=== PATIENT | female | born 1965 ===

== ENCOUNTER 2017-06-21 04:24 | Emergency (ER) | payer MEDICAID ==
[2017-06-21 04:25] VITALS: BMI 31.4
[2017-06-21 04:35] VITALS: BP 124/52; PULSE 106; RESP 20; TEMP 99.8; O2SAT 98
--- NOTE | 2017-06-21 05:29 | ED PDOC ---
HPI: General Adult Time Seen by Provider: 06/21/17 04:34 Chief Complaint (Nursing): ENT Problem Chief Complaint (Provider): ENT Problem History Per: Patient History/Exam Limitations: no limitations Onset/Duration Of Symptoms: Hrs (since waking up earlier today) Have you had recent travel within the past 21 days to any of the following countries: [place], [place], [place] or [place]?: No Current Symptoms Are (Timing): Gone Now Recently: Treated By A Physician Additional Complaint(s): 52 year old female presents to ED with complaints of epistaxis since waking earlier today and recently underwent sinus surgery x2 days ago for post nasal drip. Patient notes that epistaxis resolved CLEAN[facility]ORTER to ED and she has no other complaints. Denies any other past medical history. PCP: Bryce Muñoz Past Medical History Reviewed: Historical Data, Nursing Documentation, Vital Signs Vital Signs: Last Vital Signs Temp 99.8 F H 06/21/17 04:30 Pulse 106 H 06/21/17 04:30 Resp 20 06/21/17 04:30 BP 124/52 L 06/21/17 04:30 Pulse Ox 98 06/21/17 05:33 - Medical History PMH: No Chronic Diseases Denies: Chronic Kidney Disease - Surgical History Surgical History: Other surgeries: sinus surgery, hysterectomy - Family History Family History: States: No Known Family Hx - Home Medications Home Medications: Ambulatory Orders Medication Instructions Recorded Albuterol HFA [Ventolin HFA 90 1 puff INH PRN PRN 12/23/15 mcg/actuation (8 g)] Oxymetazoline 0.05% [Oxymetazoline 2 spray NS Q6 #1 bottle 06/21/17 HCl 30 Ml] Ofloxacin Ophth 0.3% [Ocuflox 2 drop OU QID #1 bottle 06/22/17 Ophth 0.3%] - Allergies Allergies/Adverse Reactions: Allergies Allergy/AdvReac Type Severity Reaction Status Date / Time No Known Allergies Allergy Verified 06/22/17 17:14 Review of Systems ROS Statement: Except As Marked, All Systems Reviewed And Found Negative ENT: Positive for: Other (resolved epistaxis) Physical Exam - Reviewed Nursing Documentation Reviewed: Yes Vital Signs Reviewed: Yes - Physical Exam Appears: Positive for: Non-toxic, No Acute Distress. Negative for: Uncomfortable Skin: Positive for: Normal Color, Warm, Dry Eye Exam: Positive for: Normal appearance ENT: Positive for: Sinus Pain/Drainage (Dried blood in right nare. No active bleeding. ). Negative for: Other ((-) blood in pharynx) Respiratory: Negative for: Respiratory Distress Neurologic/Psych: Positive for: Alert, Oriented. Negative for: Motor/Sensory Deficits - ECG O2 Sat by Pulse Oximetry: 98 (RA) Pulse Ox Interpretation: Normal Medical Decision Making Medical Decision Makin Initial impression: epistaxis Initial plan: * Monitor condition Scribe Attestation: Documented by Antonina Prado acting as a scribe for Anh Daniels MD. Scribe Attestation: All medical record entries made by the Scribe were at my direction and personally dictated by me. I have reviewed the chart and agree that the record accurately reflects my personal performance of the history, physical exam, medical decision making, and the department course for this patient. I have also personally directed, reviewed, and agree with the discharge instructions and disposition. Disposition - Clinical Impression Clinical Impression: Epistaxis - Patient ED Disposition Is Patient to be Admitted: No Doctor Will See Patient In The: Office Counseled Patient/Family Regarding: Studies Performed, Diagnosis, Need For Followup - Disposition Referrals: Bryce Muñoz MD [Primary Care Provider] - Disposition: Routine/Home Disposition Time: 06:00 Condition: GOOD Additional Instructions: Follow up with your PCP and nose doctor within 2-3 days. Prescriptions: Oxymetazoline 0.05% [Oxymetazoline HCl 30 Ml] 2 spray NS Q6 #1 bottle Instructions: Nosebleed (ED)
[2017-06-21] MEDS ORDERED: Phenylephrine 0.5% Nasal Spray NAS STA (05:42)
== END 2017-06-21 07:00 | disposition home or self-care (01) ==
LOC: H.ER 04:24
DX: R04.0 Epistaxis (principal); Z90.710 Acquired absence of both cervix and uterus; Z98.890 Other specified postprocedural states

== ENCOUNTER 2017-06-22 17:12 | Emergency (ER) | payer MEDICAID ==
[2017-06-22 17:12] VITALS: BMI 31.4
[2017-06-22 17:19] VITALS: BP 146/73; PULSE 103; RESP 16; TEMP 99.2; O2SAT 100
--- NOTE | 2017-06-22 17:41 | ED PDOC ---
HPI:STROKE - Time Time: 17:38 - Historian Historian: Patient - Chief Complaint Chief Complaint: Numbness - Onset Date: 06/22/17 Time: 10:00 Onset: Hours (7) - Location Locate right:: Face Locate left: Lower extremity (Pins and needles face bilat) - Radiation Radiation: None - Severity of pain Maximum severity:: Mild Pain Scale:: 0 Severity Current: None Pain Scale:: 0 - TPA Positive for Contraindication: Yes Reason tPA is not being Administered: Sxs greater than 7 hours - Notes: Notes:: Numbness left ant thigh 10AM today assoc with pins and needles face bilat.. S/p nasal endoscopy for ? CSF leak, none found according to patient. Denies headache. Also c/o redness and burning sensation to right eye. NIHSS Stroke Scale - How Severe is the Stroke Level of Consciousness: 0=Alert LOC to Questions: 0=Both comments correct LOC to commands: 0=Obeys both correctly Best Gaze: 0=Normal Visual: 0=No visual loss Facial: 0=Normal Motor Arm - Left: 0=No drift Motor Arm - Right: 0=No drift Motor Leg - Left: 0=No drift Motor Leg - Right: 0=No drift Limb Ataxia: 0=Absent Sensory: 0=Normal Best Language: 0=No aphasia Dysarthia: 0=Normal articulation Extinction & Inattention (Neglect): 0=Normal, no object Score: 0 rTPA Inclusion/Exclusion - Refusal of Treatment Patient Refused Treatment: No - Inclusion Criteria for Altepase Patient is 18 years or Older: Yes The Clinical Diagnosis of Ischemic Stroke That is Causing a Potentially Disabling Neurological Deficit: No Time of Onset is Well Established to be Less Than 270 Minute Before Treatment Would Begin: No Risk/Benefit Discussed With Patient/Family Member Present: No Past Medical History Vital Signs: Last Vital Signs Temp 99.2 F 06/22/17 17:14 Pulse 103 H 06/22/17 17:14 Resp 16 06/22/17 17:14 BP 146/73 06/22/17 17:14 Pulse Ox 100 06/22/17 17:14 - Medical History PMH: Asthma Denies: Chronic Kidney Disease - Surgical History Surgical History: - Family History Family History: States: Unknown Family Hx - Home Medications Home Medications: Ambulatory Orders Medication Instructions Recorded Albuterol HFA [Ventolin HFA 90 1 puff INH PRN PRN 12/23/15 mcg/actuation (8 g)] Oxymetazoline 0.05% [Oxymetazoline 2 spray NS Q6 #1 bottle 06/21/17 HCl 30 Ml] - Allergies Allergies/Adverse Reactions: Allergies Allergy/AdvReac Type Severity Reaction Status Date / Time No Known Allergies Allergy Verified 06/22/17 17:14 Review of Systems ROS Statement: Except As Marked, All Systems Reviewed And Found Negative Neurological: Positive for: Numbness Physical Exam - Reviewed Nursing Documentation Reviewed: Yes Vital Signs Reviewed: Yes - Physical Exam Appears: Positive for: Non-toxic, No Acute Distress Head Exam: Positive for: ATRAUMATIC, NORMAL INSPECTION, NORMOCEPHALIC Skin: Positive for: Normal Color, Warm, DRY Eye Exam: Positive for: EOMI, PERRL. Negative for: Normal appearance (Right eye conjunctivae and sclera injected medial portion) ENT: Positive for: Normal ENT Inspection Neck: Positive for: Normal, Painless ROM Cardiovascular/Chest: Positive for: Regular Rate, Rhythm Respiratory: Positive for: CNT, Normal Breath Sounds Gastrointestinal/Abdominal: Positive for: Normal Exam, Bowel Sounds, Soft Back: Positive for: Normal Inspection Extremity: Positive for: Normal ROM Neurologic/Psych: Positive for: Alert, Oriented. Negative for: Motor/Sensory Deficits - Laboratory Results Result Diagrams: 06/22/17 17:44 06/22/17 17:44 - ECG O2 Sat by Pulse Oximetry: 100 Disposition - Clinical Impression Clinical Impression: Facial paresthesia - Patient ED Disposition Is Patient to be Admitted: Yes - Disposition Disposition Time: 18:42 Condition: FAIR Forms: [facility] (Sing[place]an) - Pt Status Changed To: Hospital Disposition Of: Observation - POA Present On Arrival: None
[2017-06-22 18:04] LABS: BASO % 0.2 % (0.0-2.0); HEMATOCRIT 37.4 % (34.0-47.0); LYMPH # 0.5 K/uL (1.0-4.3); LYMPH % 5.1 % (20.0-40.0); MEAN CELL VOLUME 94.2 fl (81.0-99.0); MEAN CORPUSCULAR HEMOGLOBIN 31.2 pg (27.0-31.0); MEAN CORPUSCULAR HGB CONC 33.1 g/dL (33.0-37.0); MEAN PLATELET VOLUME 7.7 fl (7.2-11.7); MONO # 0.3 K/uL (0.0-0.8); NEUT # 8.1 K/uL (1.8-7.0); NEUT % 91.7 % (50.0-75.0); PLATELET COUNT 245 K/uL (130-400); RED CELL DISTRIBUTION WIDTH 13.9 % (11.5-14.5); WHITE BLOOD COUNT 8.9 K/uL (4.8-10.8)
[2017-06-22 18:20] LABS: ALB/GLOB RATIO 1.1 (1.0-2.1); ALKALINE PHOSPHATASE 74 U/L (38-126); ALT/SGPT 43 U/L (9-52); AST/SGOT 38 U/L (14-36); BILIRUBIN,TOTAL 0.3 mg/dl (0.2-1.3); BLOOD UREA NITROGEN 14 mg/dl (7-17); CALCIUM 9.4 mg/dL (8.4-10.2); CARBON DIOXIDE 25 mmol/L (22-30); CHLORIDE 106 mmol/L (98-107); GFR AFRICAN-AMERICAN > 60; GLUCOSE,RANDOM 198 mg/dL (65-105); POTASSIUM 4.2 MMOL/L (3.6-5.0); SODIUM 143 mmol/l (132-148); TOTAL PROTEIN 7.8 G/DL (6.3-8.2)
[2017-06-22] MEDS ORDERED: Gadodiamide 287 MG/ML VIAL (15ML) IV ONE (18:56)
[2017-06-22 20:20] LABS: NEUTROPHIL 83 % (42-75); TOTAL CELLS COUNTED 100
--- NOTE | 2017-06-22 20:42 | MRI ---
EXAM: MR Head Without and With Intravenous Contrast EXAM DATE/TIME: 06/22/2017 6:39 PM CLINICAL HISTORY: 52 years old, female; Signs and symptoms; Other: Left leg numbness; Additional info: Csf leak? TECHNIQUE: Magnetic resonance images of the head/brain without and with intravenous contrast in multiple planes. CONTRAST: 15 mL of OMNISCAN administered intravenously. COMPARISON: Recent head CT of 2017-06-22 18:03 FINDINGS: BRAIN: Best seen on FLAIR images 10 and 14, there are 2 tiny foci of signal abnormality in the right right frontal white matter, one in the deep white matter, and the second in the subcortical white matter. No associated enhancement. These are nonspecific in appearance, however, in a patient of this age, most likely representing mild chronic small vessel ischemic changes. No other significant abnormality identified. No evidence of restricted diffusion/acute infarct. No acute extra-axial fluid collections visualized. No evidence of abnormal intracranial enhancement. VENTRICLES: No evidence of significant hydrocephalus. BONES/JOINTS: No acute bony abnormality identified. SINUSES: Fluid and heterogeneous material seen in the right sphenoid sinus, which appears partially composed of fat density on the recent CT, and could represent some type of surgical material or packing material. Recommend correlation with surgical history. There is also scattered opacification of the bilateral ethmoid sinuses. MASTOID AIR CELLS: Mastoid air cells appear clear. ORBITS: No acute intraorbital abnormality seen. SELLA: Pituitary gland appears grossly unremarkable. IMPRESSION: - No evidence of acute infarct or other significant acute intracranial abnormality. - Heterogeneous material in the right sphenoid sinus. Please see above for a full description. - Few tiny foci of white matter signal abnormality, nonspecific in appearance, but most likely representing mild chronic small vessel ischemic changes. - See above for remaining findings.
--- NOTE | 2017-06-22 21:03 | ED PDOC ---
- Laboratory Results Result Diagrams: 06/22/17 17:44 06/22/17 17:44 - ECG O2 Sat by Pulse Oximetry: 100 (RA) Pulse Ox Interpretation: Normal Medical Decision Making Medical Decision Makin:00 Patient signed over to me from Dr. Gutierrez. MRI pending. 20:42 Head MRI reviewed. Findings noted as follows: FINDINGS: BRAIN: Best seen on FLAIR images 10 and 14, there are 2 tiny foci of signal abnormality in the right right frontal white matter, one in the deep white matter, and the second in the subcortical white matter. No associated enhancement. These are nonspecific in appearance, however, in a patient of this age, most likely representing mild chronic small vessel ischemic changes. No other significant abnormality identified. No evidence of restricted diffusion/acute infarct. No acute extra-axial fluid collections visualized. No evidence of abnormal intracranial enhancement. VENTRICLES: No evidence of significant hydrocephalus. BONES/JOINTS: No acute bony abnormality identified. SINUSES: Fluid and heterogeneous material seen in the right sphenoid sinus, which appears partially composed of fat density on the recent CT, and could represent some type of surgical material or packing material. Recommend correlation with surgical history. There is also scattered opacification of the bilateral ethmoid sinuses. MASTOID AIR CELLS: Mastoid air cells appear clear. ORBITS: No acute intraorbital abnormality seen. SELLA: Pituitary gland appears grossly unremarkable. IMPRESSION: - No evidence of acute infarct or other significant acute intracranial abnormality. - Heterogeneous material in the right sphenoid sinus. Please see above for a full description. - Few tiny foci of white matter signal abnormality, nonspecific in appearance, but most likely representing mild chronic small vessel ischemic changes. - See above for remaining findings. 21:00 Spoke to patient and explained the benign nature of her MRI. Patient states that she prefers to follow up as an outpatient. 21:04 Cancelled patient's admission. Spoke to Dr. Levy. 21:06 Patient is stable for discharge. Patient agrees to follow up with Dr. Londono ( Neurology). In addition she agrees to follow up with her own flooring helper, ENT doctor, and neurosurgeon. Clinical impression: paresthesia Scribe Attestation: Documented by Lyndsey Hernandez, acting as a scribe for Fabrice Granger MD. Provider Scribe Attestation: All medical record entries made by the Scribe were at my direction and personally dictated by me. I have reviewed the chart and agree that the record accurately reflects my personal performance of the history, physical exam, medical decision making, and the department course for this patient. I have also personally directed, reviewed, and agree with the discharge instructions and disposition. Disposition Counseled Patient/Family Regarding: Studies Performed, Diagnosis, Need For Followup, Rx Given - Clinical Impression Clinical Impression: Facial paresthesia, Conjunctivitis - POA Present On Arrival: None - Disposition Referrals: Moshe Londono MD [Staff Provider] - Isra Brown MD [Medical Doctor] - Disposition: Routine/Home Disposition Time: 21:06 Condition: STABLE Prescriptions: Ofloxacin Ophth 0.3% [Ocuflox Ophth 0.3%] 2 drop OU QID #1 bottle Instructions: Paresthesia (ED), Conjunctivitis (ED) Forms: [facility] (French) Print Language: BURMESE
--- NOTE | 2017-06-23 07:34 | CT ---
PROCEDURE: CT HEAD WITHOUT CONTRAST. HISTORY: Left leg numbness COMPARISON: None available. TECHNIQUE: Axial computed tomography images were obtained through the head/brain without intravenous contrast. Radiation dose: Total exam DLP = 858.37 mGy-cm. This CT exam was performed using one or more of the following dose reduction techniques: Automated exposure control, adjustment of the mA and/or kV according to patient size, and/or use of iterative reconstruction technique. FINDINGS: HEMORRHAGE: No intracranial hemorrhage. BRAIN: Normal nino-white matter differentiation and density are appreciated throughout the cerebrum and cerebellum with the brainstem appearing unremarkable as well. There is no mass effect. There is no suspicious extra-axial fluid collection and the midline brain anatomy appears diffusely unremarkable. VENTRICLES: Unremarkable. No hydrocephalus. CALVARIUM: Unremarkable. PARANASAL SINUSES: Unremarkable as visualized. No significant inflammatory changes. MASTOID AIR CELLS: Unremarkable as visualized. No inflammatory changes. OTHER FINDINGS: None. IMPRESSION: Unremarkable unenhanced head CT. Consider follow-up CT or MRI further characterization if clinically warranted. Concordant preliminary report from [facility], 06/22/2017.
== END 2017-06-22 21:56 | disposition home or self-care (01) ==
LOC: H.ER 17:12
DX: R20.2 Paresthesia of skin (principal); H10.9 Unspecified conjunctivitis; J45.909 Unspecified asthma, uncomplicated
CPT/HCPCS: 70450; 70553; 80053; 85025; 85610; 99284; A9579